=== PATIENT | female | born 1960 | race Two or more races ===

== ENCOUNTER 2017-08-09 11:28 | Emergency (ER) | payer OTHER ==
[~2017-08-09] VITALS: Ht 162.6 cm; Wt 77.1 kg
[~2017-08-09 11:28] MED LIST: NABUMETONE500 MG PO; PERCOCET 5/3251 TAB PO
[2017-08-09] MEDS ORDERED: AXERT12.5 MG (11:36)
== END 2017-08-09 17:20 | disposition home or self-care (01) ==
LOC: ER 11:28
DX: M54.2 Cervicalgia (principal); M62.838 Other muscle spasm